=== PATIENT | female | born 1950 | race African-American/Black ===

== ENCOUNTER 2020-06-17 15:46 | Emergency (ER) | payer OTHER ==
[~2020-06-17] VITALS: Ht 167.6 cm; Wt 59.4 kg
[2020-06-17 16:21] VITALS: Ht 167.6 cm; Wt 59.4 kg
[2020-06-17 18:25] VITALS: BP 146/74
== END 2020-06-17 18:25 | disposition home or self-care (01) ==
LOC: ED 15:46
DX: S39.012A Strain of muscle, fascia and tendon of lower back, initial encounter (principal); I10 Essential (primary) hypertension; E11.9 Type 2 diabetes mellitus without complications; E78.00 Pure hypercholesterolemia, unspecified; Z88.1 Allergy status to other antibiotic agents; X58.XXXA Exposure to other specified factors, initial encounter; Y93.89 Activity, other specified; Y92.89 Other specified places as the place of occurrence of the external cause; Y99.8 Other external cause status
CPT/HCPCS: J1885; J8597; Q0162